=== PATIENT | female | born 1955 | race Caucasian/White ===

== ENCOUNTER 2019-09-06 08:00 | Outpatient (CLI) | payer MEDICARE, OTHER ==
--- NOTE | 2019-09-06 14:45 | XRAY Report ---
PROCEDURE: Knee 3 View LT INDICATIONS: KNEE JOINT PAIN, LEFT TECHNIQUE: 3 views of the left knee were acquired. COMPARISON: None. FINDINGS: No displaced fractures are seen. Mild degenerative changes are seen. There is an enthesophyte seen al davidson the superior aspect of the patella. There is a soft tissue marker seen along the skin medially. No focal abnormalities are seen at this s ite. No significant soft tissue abnormalities can be seen. IMPRESSION: Age-appropriate degenerative changes are seen, without an acute abnormality seen by plain film. If it would be helpful for clinical management decision making, please consider a dedicated knee MRI for further evaluation (assuming that there is no contraindication). Reviewed by: Kapil Johnson MD on 09/06/2019 1:44 PM [facility] Approved by: Kapil Johnson MD on 09/06/2019 1:44 PM [facility] Station ID: [id number]
== END 2019-09-06 23:59 | disposition home or self-care (01) ==
LOC: DI.S 08:00
PROVIDERS: ATTEND Physician Assistant Medical
DX: M17.12 Unilateral primary osteoarthritis, left knee (principal)